=== PATIENT | male | born 1995 | race Caucasian/White ===

== ENCOUNTER 2016-08-03 20:57 | Emergency (ER) | payer MEDICAID ==
[2016-08-03 21:30] VITALS: O2SAT 100
[2016-08-03 21:52] LABS: APPEARANCE,URINE Clear; BILIRUBIN,URINE NEGATIVE (NEGATIVE); COLOR,URINE Dark yellow; GLUCOSE, URINE (UA) NEGATIVE (NEGATIVE); KETONES,URINE NEGATIVE (NEGATIVE); LEUKOCYTE ESTERASE ,URINE NEGATIVE (NEGATIVE); NITRATE,URINE NEGATIVE (NEGATIVE); OCCULT BLOOD,URINE NEGATIVE (NEG-TRACE)
[2016-08-03 22:01] LABS: RBC,URINE 0-1 (0-3AV/HPF); WBC,URINE 0-1 (0-5AV/HPF)
[2016-08-03] MEDS ORDERED: KETOROLAC TROMETHAMINE 30 MG/ML SOL IM ONE (22:09)
[2016-08-03] MEDS ORDERED: APAP/HYDROCODONE 325/5 TAB PO ONE (22:09)
[2016-08-03] MEDS ORDERED: KETOROLAC TROMETHAMINE 30 MG/ML SOL ONE (22:18)
[2016-08-03] MEDS ORDERED: APAP/HYDROCODONE 325/5 TAB ONE (22:18)
[2016-08-03 22:39] LABS: BASOPHILS % (AUTO) 1 % (0-3); EOSINOPHILS % (AUTO) 1 % (0-9); HEMATOCRIT 40 % (39-53); MEAN CORPUSCULAR HGB CONC 35.9 gm/dl (32.0-36.0); MONOCYTES % (AUTO) 8.2 % (0-12); NEUTROPHILS % (AUTO) 80.9 % (37-80)
[2016-08-03 23:43] VITALS: BP 100/55; PULSE 100; RESP 16; TEMP 99.7
[2016-08-03] MEDS ORDERED: CIPROFLOXACIN HCL 500 MG TAB PO SCH ×2 (23:45)
[2016-08-03] MEDS ORDERED: CIPROFLOXACIN HCL 500 MG TAB PO ONE (23:48)
== END 2016-08-04 00:06 | disposition home or self-care (01) | DRG 728 ==
LOC: ED 20:57
DX: N45.1 Epididymitis (principal)
CPT/HCPCS: 36415; 74176; 80048; 81001; 85025; 96372; 99283; 99284; J1885